=== PATIENT | female | born 1995 | race Caucasian/White ===

== ENCOUNTER 2019-02-20 09:01 | Emergency (ER) | payer SELFPAY | END 2019-02-20 12:10 | disposition home or self-care (01) | LOC: JER 09:01 ==

== ENCOUNTER 2019-09-24 10:44 | Emergency (ER) | payer OTHER ==
[2019-09-24 10:59] VITALS: BP 108/63; PULSE 68; TEMP 97.7; BMI 27.4
--- NOTE | 2019-09-24 11:19 | PDOC ---
History of Present Illness - General Chief Complaint: Cold Symptoms Stated Complaint: COLD SYMPTOMS Time Seen by Provider: 09/24/19 11:05 History Source: Patient Exam Limitations: No Limitations - History of Present Illness Initial Comments: 09/24/19 11:17 Patient is a 24-year-old female who presents to the ED with complaint of cough since August 2019. She states when she is outside in the cold she feels the cough is even worse. She does admit to some postnasal drip. She denies any other URI like symptoms. She denies any fevers. The patient does smoke marijuana but denies cigarette smoke. She denies any past medical history. Past History - Past Medical History Allergies/Adverse Reactions: Allergies Allergy/AdvReac Type Severity Reaction Status Date / Time No Known Allergies Allergy Verified 02/20/19 09:06 Home Medications: Ambulatory Orders Cephalexin [Keflex] 500 mg PO QID #40 capsule 02/20/19 Ibuprofen [Motrin -] 600 mg PO QID PRN #20 tablet 02/20/19 Benzonatate [Tessalon Pearls -] 100 mg PO TID PRN #21 capsule 09/24/19 Fluticasone Prop 0.05% Nasal [Flonase -] 2 spray NS DAILY #1 spray.pump COPD: No - Immunization History Immunization Up to Date: No - Psycho Social/Smoking Cessation Hx Smoking History: Unknown if ever smoked Have you smoked in the past 12 months: No Information on smoking cessation initiated: No Hx Alcohol Use: No Drug/Substance Use Hx: No Review of Systems - Review of Systems Comments:: 09/24/19 11:18 - Review of Systems Able to Perform ROS?: Yes Constitutional: No: Fever, Chills, Loss of Appetite, Night Sweats, Weakness HEENTM: No: Eye Pain, Vision changes, Ear Pain, Throat Pain, Throat Swelling, Mouth Pain, Difficulty Swallowing Respiratory: No: Shortness of Breath, Wheezing, Sputum Production; Positive cough Cardiac (ROS): No: Chest Pain, Chest Tightness, Palpitations, Irregular Heart Beat, Edema ABD/GI: No: Nausea, Vomiting, Abdominal Pain, Diarrhea Musculoskeletal: No: Muscle Pain, Back Pain, Joint Pain, Muscle Weakness, Neck Pain Integumentary: No: Lesions, Rash Neurological: No: Headache, Numbness, Tingling, Weakness, Speech Difficulties *Physical Exam - Vital Signs Last Vital Signs Temp Pulse Resp BP Pulse Ox 97.7 F 68 20 108/63 98 09/24/19 10:48 09/24/19 10:48 09/24/19 10:48 09/24/19 10:48 09/24/19 10:48 - Physical Exam 09/24/19 11:18 - Physical Exam General Appearance: Nourished, Appropriately Dressed, No Distress HEENT: EOMI, Normal Voice, No Pharyngeal Erythema, No Muffled/Hoarse voice, No Tonsillar Exudate, No Tonsillar Erythema, No Nasal Congestion, No Rhinorrhea, Hearing Grossly Normal, TMs Normal, No TM Bulging, No TM Dullness, No TM Erythema Neck: Supple, No Lymphadenopathy (R), No Lymphadenopathy (L), No Rigidity, No Decreased range of motion Respiratory/Chest: Lungs Clear, Normal Breath Sounds. No Respiratory Distress, No Accessory Muscle Use, no adventitious lung sounds appreciated. Cardiovascular: Regular Rhythm, Regular Rate, S1, S2 Gastrointestinal/Abdominal: Normal Bowel Sounds, Soft. Non-tender, No Guarding , No Rebound, No Rigidity Musculoskeletal: Normal Inspection. No Decreased Range of Motion Extremity: Normal Capillary Refill, Normal Inspection Integumentary: Normal Color, Dry. No Rash Neurologic: learning and development assistant II-XII NML intact, Fully Oriented, Alert, Normal Mood/Affect, Normal Response ED Treatment Course - RADIOLOGY Radiology Studies Ordered: Category Date Time Status CHEST PA & LAT [RAD] Stat Radiology 09/24/19 11:13 Ordered Medical Decision Making - Medical Decision Making 09/24/19 11:25 The patient's chest x-ray was read as no acute pathology by radiology. Her symptoms are likely secondary to a bronchitis and rhinitis. We will discharge the patient with Tessalon Perles and Flonase nasal spray. She should follow-up with her primary doctor within 1 to 2 days for repeat evaluation. She understands and agrees with this treatment and plan and she is stable for discharge. Discharge - Discharge Information Problems reviewed: Yes Clinical Impression/Diagnosis: Bronchitis Rhinitis Qualifiers: Rhinitis type: acute Qualified Code(s): J00 - Acute nasopharyngitis [common cold] Condition: Stable Disposition: HOME - Additional Discharge Information Prescriptions: Benzonatate [Tessalon Pearls -] 100 mg PO TID PRN #21 capsule PRN Reason: Cough Fluticasone Prop 0.05% Nasal [Flonase -] 2 spray NS DAILY #1 spray.pump - Follow up/Referral Referrals: Laura Stover COMMODITIES TRADER [Primary Care Provider] - - Patient Discharge Instructions Patient Printed Discharge Instructions: DI for Acute Bronchitis, DI for Allergic Rhinitis Additional Instructions: Take the Tessalon Perles as needed for cough. Use the nasal spray, 2 sprays in each nostril every morning, to help with the postnasal drip. Follow-up with your primary doctor within 1 to 2 days for repeat evaluation. - Post Discharge Activity Work/Back to School Note: Back to Work
== END 2019-09-24 11:36 | disposition home or self-care (01) ==
LOC: JERFT 10:44
DX: J40 Bronchitis, not specified as acute or chronic (principal); J00 Acute nasopharyngitis [common cold]
CPT/HCPCS: 71046-TC-FY; 99281-25

== ENCOUNTER 2019-11-08 17:34 | Emergency (ER) | payer OTHER ==
[2019-11-08 17:41] VITALS: BP 112/64; PULSE 77; TEMP 97.7; BMI 28.3
[2019-11-08] MEDS ORDERED: KETOROLAC TROMETHAMINE 30 MG/1 ML VIAL IM ONE (18:14)
[2019-11-08] MEDS ORDERED: KETOROLAC TROMETHAMINE 30 MG/1 ML VIAL ONE (18:16)
--- NOTE | 2019-11-08 19:05 | PDOC ---
History of Present Illness - General Chief Complaint: Pain Stated Complaint: LT WRIST PAIN Time Seen by Provider: 11/08/19 18:03 History Source: Patient Exam Limitations: No Limitations - History of Present Illness Initial Comments: 11/08/19 19:01 24-year-old female denies past medical history [id number] presents complaining of intermittent left wrist pain for 8 months. Denies injury, fever , chills, weakness, numbness and tingling. ROS: Left wrist pain PE: GENERAL: well-appearing, NAD HEAD: NCAT EYES: Pupils equal, round and reactive to light, sclera anicteric, conjunctiva clear ENT: pharynx: no erythema, no exudate, uvula midline NECK: supple CHEST: nontender RESP: clear, no w/r/r CARDIO: rrr, no m/g/r ABD: +BS, soft, nontender, non distended BACK: no midline spinal ttp, no CVAT EXTREMITIES: Normal range of motion, no edema, minimal swelling noted over the ulnar aspect of the left wrist, no tenderness to palpation, no erythema, positive radial pulse NEUROLOGICAL: Normal speech, normal gait SKIN: Warm, Dry Is this a multiple visit Asthma Patient?: No Past History - Past Medical History Allergies/Adverse Reactions: Allergies Allergy/AdvReac Type Severity Reaction Status Date / Time No Known Allergies Allergy Verified 11/08/19 17:39 Home Medications: Ambulatory Orders Cephalexin [Keflex] 500 mg PO QID #40 capsule 02/20/19 Ibuprofen [Motrin -] 600 mg PO QID PRN #20 tablet 02/20/19 Benzonatate [Tessalon Pearls -] 100 mg PO TID PRN #21 capsule 09/24/19 Fluticasone Prop 0.05% Nasal [Flonase -] 2 spray NS DAILY #1 spray.pump COPD: No - Immunization History Immunization Up to Date: No - Psycho Social/Smoking Cessation Hx Smoking History: Current every day smoker Have you smoked in the past 12 months: No Information on smoking cessation initiated: No Hx Alcohol Use: No Drug/Substance Use Hx: ([email or web address]) *Physical Exam - Vital Signs Last Vital Signs Temp Pulse Resp BP Pulse Ox 97.7 F 77 18 112/64 99 11/08/19 17:37 11/08/19 17:37 11/08/19 17:37 11/08/19 17:37 11/08/19 17:37 ED Treatment Course - ADDITIONAL ORDERS Additional order review: Laboratory Results 11/08/19 18:26 POC Glucometer 81 11/08/19 18:26 POC Glucometer 81 - Medications Given in the ED: ED Medications Discontinued Medications Generic Name Dose Route Start Last Admin Trade Name Darshan PRN Reason Stop Dose Admin Ketorolac Tromethamine 30 mg 11/08/19 18:14 11/08/19 18:15 Toradol Injection - IM 11/08/19 18:15 30 mg ONCE ONE Administration Medical Decision Making - Medical Decision Making 11/08/19 19:03 24-year-old female [id number] complaining of intermittent left wrist pain x8 months. Exam consistent with ganglion cyst Advised to alternate between acetaminophen and ibuprofen every 6 hours as needed for pain Advised to follow-up with orthopedics within 1 to 2 weeks Return precautions discussed Discharge - Discharge Information Problems reviewed: Yes Clinical Impression/Diagnosis: Ganglion cyst of dorsum of left wrist Condition: Stable Disposition: HOME - Admission No - Follow up/Referral Referrals: Jasmeet Santana DO [Staff Physician] - - Patient Discharge Instructions Additional Instructions: Alternate between acetaminophen and ibuprofen every 6 hours as needed for pain Follow-up with orthopedics within 1 week - Post Discharge Activity
== END 2019-11-08 19:06 | disposition home or self-care (01) ==
LOC: JERFT 17:34
PROC: 3E0233Z Introduction of Anti-inflammatory into Muscle, Percutaneous Approach (ICD-10-PCS; principal; 2019-11-08)
DX: M67.432 Ganglion, left wrist (principal)
CPT/HCPCS: 82962; 96372; 99284-25

== ENCOUNTER 2021-10-06 07:37 | Emergency (ER) | payer OTHER ==
[2021-10-06 07:46] VITALS: BP 137/75; PULSE 80; TEMP 97.7; BMI 30.7
[2021-10-06] MEDS ORDERED: DEXAMETHASONE LIQUID 0.5 MG/5 ML PO ONE (08:12)
[2021-10-06] MEDS ORDERED: guaiFENesin/D-METHORPHAN HB 10 ML UNIT-DOSE CUPS PO ONE (08:12)
[2021-10-06] MEDS ORDERED: ALBUTEROL SO4 2.5/IPRATROPIUM 0.5 INH SOL 3 ML VIAL.NEB. NEB SCH (08:15)
[2021-10-06] MEDS ORDERED: DEXAMETHASONE SOD PHOSPHATE 10 MG/1 ML VIAL ONE (08:43)
[2021-10-06] MEDS ORDERED: ALBUTEROL SO4 2.5/IPRATROPIUM 0.5 INH SOL 3 ML VIAL.NEB. NEB ONE (08:43)
[2021-10-06] MEDS ORDERED: guaiFENesin/D-METHORPHAN HB 10 ML UNIT-DOSE CUPS ONE (08:43)
== END 2021-10-06 09:22 | disposition home or self-care (01) ==
LOC: JER 07:37
PROC: 3E0F7GC Introduction of Other Therapeutic Substance into Respiratory Tract, Via Natural or Artificial Opening (ICD-10-PCS; principal; 2021-10-06)
DX: J20.9 Acute bronchitis, unspecified (principal)
CPT/HCPCS: 71046-TC-FY; 99284-25; C9803; U0003; U0005

== ENCOUNTER 2021-12-11 06:58 | Emergency (ER) | payer OTHER ==
[2021-12-11 07:31] VITALS: BP 122/61; PULSE 110; TEMP 98.1; BMI 30.9
[2021-12-11] MEDS ORDERED: ALBUTEROL SO4 2.5/IPRATROPIUM 0.5 INH SOL 3 ML VIAL.NEB. NEB ONE ×3 (07:58→08:26)
[2021-12-12 16:09] LABS: SARS-CoV-2 NAA Not Detected (Not Detected)
== END 2021-12-11 10:36 | disposition home or self-care (01) ==
LOC: JER 06:58
PROC: 3E0F7GC Introduction of Other Therapeutic Substance into Respiratory Tract, Via Natural or Artificial Opening (ICD-10-PCS; principal; 2021-12-11)
PROC: 3E0F7GC Introduction of Other Therapeutic Substance into Respiratory Tract, Via Natural or Artificial Opening (ICD-10-PCS; 2021-12-11)
DX: R06.2 Wheezing (principal); R05.1 Acute cough
CPT/HCPCS: 71046-TC-FY; 87804; 99281-25; C9803-CS; U0003; U0005

== ENCOUNTER 2022-03-01 21:43 | Emergency (ER) | payer OTHER ==
[2022-03-01 21:53] VITALS: BMI 32.1
[2022-03-01] MEDS ORDERED: predniSONE 20 MG TABLET (UD) PO ONE (22:15)
[2022-03-01] MEDS ORDERED: predniSONE 20 MG TABLET (UD) ONE (22:31)
[2022-03-01] MEDS ORDERED: ALBUTEROL SO4 2.5/IPRATROPIUM 0.5 INH SOL 3 ML VIAL.NEB. NEB ONE (22:31)
[2022-03-01] MEDS: ALBUTEROL SO4 2.5/IPRATROPIUM 0.5 INH SOL 3 ML VIAL.NEB. NEB SCH (22:32)
[2022-03-01] MEDS ORDERED: MAGNESIUM SULFATE IN WATER 2 GM/50 ML IVPB IVPB ONE (23:45)
[2022-03-02] MEDS ORDERED: ALBUTEROL SO4 0.083% IH SOL 2.5 MG/3 ML VIAL.NEB. NEB ONE (00:02)
[2022-03-02] MEDS ORDERED: MAGNESIUM SULFATE IN WATER 2 GM/50 ML IVPB IVPB ONE (00:02)
[2022-03-02] MEDS: ALBUTEROL SO4 0.083% IH SOL 2.5 MG/3 ML VIAL.NEB. NEB SCH ×2 (00:26→00:42)
[2022-03-02] MEDS ORDERED: ONDANSETRON 4 MG/2 ML VIAL IVPUSH ONE (00:29)
[2022-03-02] MEDS ORDERED: ONDANSETRON 4 MG/2 ML VIAL ONE (00:30)
[2022-03-02 00:44] LABS: BASO % 0.2 % (0-2.0); EOS % 0.6 % (0-4.5); HEMATOCRIT 45.4 % (32.4-45.2); HEMOGLOBIN 15.2 GM/dL (10.7-15.3); LYMPH % 9.1 % (8-40); MCH 28.9 pg (25.7-33.7); MCHC 33.6 g/dl (32.0-36.0); MEAN CELL VOLUME 86.1 fl (80-96); MEAN PLT VOLUME 9.7 fl (7.5-11.1); MONO % 7.9 % (3.8-10.2); NEUT % 82.2 % (42.8-82.8); PLATELET COUNT 326 10^3/uL (134-434); RBC 5.27 M/mm3 (3.60-5.2); RDW 14.3 % (11.6-15.6); WHITE BLOOD COUNT 18.4 K/mm3 (4.0-10.0)
[2022-03-02 00:47] LABS: EPI CELLS >36 /uL (0-25.1); HYALINE CASTS 1 /uL (0-3.1); URINE APPEARANCE CLOUDY; URINE BACTERIA 1274 /uL (0-1359); URINE BILIRUBIN NEGATIVE (NEGATIVE); URINE COLOR YELLOW; URINE GLUCOSE (UA) NEGATIVE (NEGATIVE); URINE KETONE 2+ (NEGATIVE); URINE LEUK ESTERASE NEGATIVE (NEGATIVE); URINE NITRITE NEGATIVE (NEGATIVE); URINE PROTEIN 1+ (NEGATIVE); URINE UROBILINOGEN 0.2 mg/dL (0.2-1.0); URINE WBC 15 /uL (0-25.8)
[2022-03-02 01:02] LABS: CALCIUM 9.7 mg/dL (8.5-10.1)
[2022-03-02 01:03] LABS: ALBUMIN 4.6 g/dl (3.4-5.0); MAGNESIUM 2.2 mg/dL (1.8-2.4)
[2022-03-02 01:07] LABS: CREATININE 0.9 mg/dL (0.55-1.3)
[2022-03-02 01:08] LABS: BILIRUBIN,TOTAL 0.4 mg/dL (0.2-1); TOT PROT 8.7 g/dl (6.4-8.2)
[2022-03-02 02:49] VITALS: BP 130/82; PULSE 101; TEMP 99.1
== END 2022-03-02 02:48 | disposition home or self-care (01) ==
LOC: JER 21:43
PROC: 3E033GC Introduction of Other Therapeutic Substance into Peripheral Vein, Percutaneous Approach (ICD-10-PCS; principal; 2022-03-01)
PROC: 3E0F7GC Introduction of Other Therapeutic Substance into Respiratory Tract, Via Natural or Artificial Opening (ICD-10-PCS; 2022-03-01)
DX: J45.901 Unspecified asthma with (acute) exacerbation (principal)
CPT/HCPCS: 0241U-QW; 36415; 71046-TC-FY; 80053; 81003; 83735; 84484; 84703; 85025; 87086; 93005; 93010; 99285-25

== ENCOUNTER 2022-09-03 20:50 | Emergency (ER) | payer OTHER ==
[2022-09-03 20:57] VITALS: BMI 32.4
[2022-09-03] MEDS ORDERED: ONDANSETRON 4 MG/2 ML VIAL IVPUSH ONE (21:36)
[2022-09-03] MEDS ORDERED: MAG HYDROX/AL HYDROX/SIMETH 30 ML UNIT-DOSE CUP PO ONE (21:36)
[2022-09-03] MEDS ORDERED: SODIUM CHLORIDE 1,000 ML IV STA (21:36)
[2022-09-03] MEDS ORDERED: FAMOTIDINE 20 MG/50 ML IVPB 20 MG/50 ML MG IVPB ONE (21:36)
[2022-09-03] MEDS ORDERED: ACETAMINOPHEN 1000 MG/100 ML BAG IVPB ONE (21:50)
[2022-09-03] MEDS ORDERED: ACETAMINOPHEN INJECTION 100 ML IVPB ONE (21:51)
[2022-09-03] MEDS ORDERED: ONDANSETRON 4 MG/2 ML VIAL ONE (21:51)
[2022-09-03] MEDS ORDERED: FAMOTIDINE 10 MG/ML VIAL IVPB ONE (21:52)
[2022-09-03 22:13] LABS: HEMATOCRIT 47.7 % (32.4-45.2); HEMOGLOBIN 15.6 GM/dL (10.7-15.3); MCH 28.6 pg (25.7-33.7); MCHC 32.8 g/dl (32.0-36.0); MEAN CELL VOLUME 87.3 fl (80-96); PLATELET COUNT 384 10^3/uL (134-434); RBC 5.46 M/mm3 (3.60-5.2); RDW 14.1 % (11.6-15.6); WHITE BLOOD COUNT 17.8 K/mm3 (4.0-10.0)
[2022-09-03 22:18] LABS: INR 1.07 (0.83-1.09); PROTHROMBIN TIME (PATIENT) 12.3 SEC (9.7-13.0)
[2022-09-03] MEDS ORDERED: HYDROmorphone HCL CARPU-JECT 2 MG/1 ML DISP.SYRIN IVPUSH ONE (22:18)
[2022-09-03] MEDS ORDERED: HYDROmorphone HCl 2 MG/ML VIAL ONE (22:21)
[2022-09-03 22:30] LABS: CHLORIDE 107 mmol/L (98-107); SODIUM 140 mmol/L (136-145)
[2022-09-03 22:33] LABS: ALBUMIN 4.4 g/dl (3.4-5.0); ANION GAP 12 MMOL/L (8-16); BLOOD UREA NITROGEN 13.4 mg/dL (7-18); CO2 21 mmol/L (21-32); GLUCOSE,RANDOM 115 mg/dL (74-106); LIPASE 91 U/L (73-393)
[2022-09-03 22:36] LABS: CREATININE 0.8 mg/dL (0.55-1.3); SGOT/AST 23 U/L (15-37); SGPT/ALT 35 U/L (13-61)
[2022-09-03 22:37] LABS: TOT PROT 8.2 g/dl (6.4-8.2)
[2022-09-03 22:38] LABS: BILIRUBIN,TOTAL 0.4 mg/dL (0.2-1)
[2022-09-03 22:39] LABS: ALK PHOS 200 U/L (45-117)
[2022-09-03 22:42] LABS: ANISOCYTOSIS 1+; MACROCYTOSIS 0
[2022-09-04 02:38] LABS: EPI CELLS 11 /uL (0-25.1); HYALINE CASTS 2 /uL (0-3.1); PH,URINE 5.5 (5.0-8.0); URINE APPEARANCE CLEAR; URINE BACTERIA 458 /uL (0-1359); URINE BILIRUBIN NEGATIVE (NEGATIVE); URINE COLOR YELLOW; URINE GLUCOSE (UA) NEGATIVE (NEGATIVE); URINE KETONE 1+ (NEGATIVE); URINE LEUK ESTERASE NEGATIVE (NEGATIVE); URINE NITRITE NEGATIVE (NEGATIVE); URINE PROTEIN 1+ (NEGATIVE); URINE UROBILINOGEN 0.2 mg/dL (0.2-1.0); URINE WBC 8 /uL (0-25.8)
[2022-09-04 02:40] VITALS: BP 100/51; PULSE 54; RESP 20; TEMP 97.8
== END 2022-09-04 03:08 | disposition home or self-care (01) ==
LOC: JER 20:50
PROC: 3E0333Z Introduction of Anti-inflammatory into Peripheral Vein, Percutaneous Approach (ICD-10-PCS; principal; 2022-09-03)
PROC: 3E033GC Introduction of Other Therapeutic Substance into Peripheral Vein, Percutaneous Approach (ICD-10-PCS; 2022-09-03)
PROC: 3E033NZ Introduction of Analgesics, Hypnotics, Sedatives into Peripheral Vein, Percutaneous Approach (ICD-10-PCS; 2022-09-03)
PROC: 3E033GC Introduction of Other Therapeutic Substance into Peripheral Vein, Percutaneous Approach (ICD-10-PCS; 2022-09-03)
PROC: 3E0337Z Introduction of Electrolytic and Water Balance Substance into Peripheral Vein, Percutaneous Approach (ICD-10-PCS; 2022-09-03)
DX: R10.84 Generalized abdominal pain (principal); R11.10 Vomiting, unspecified
CPT/HCPCS: 36415; 74177-TC; 76705-TC; 80053; 81003; 83690; 84702; 85025; 85610; 85730; 86850; 86900; 86901; 87086; 99285-25; Q9967

== ENCOUNTER 2022-12-23 16:57 | Emergency (ER) | payer OTHER ==
[2022-12-23 17:01] VITALS: BP 128/82; PULSE 84; RESP 18; TEMP 99; BMI 32.4
[2022-12-23] MEDS ORDERED: ALBUTEROL SO4 2.5/IPRATROPIUM 0.5 INH SOL 3 ML VIAL.NEB. NEB ONE ×3 (17:57→18:18)
[2022-12-23] MEDS ORDERED: predniSONE 20 MG TABLET (UD) PO ONE (17:57)
[2022-12-23] MEDS ORDERED: predniSONE 20 MG TABLET (UD) ONE (18:16)
== END 2022-12-23 18:55 | disposition home or self-care (01) ==
LOC: JERFT 16:57
PROC: 3E0F7GC Introduction of Other Therapeutic Substance into Respiratory Tract, Via Natural or Artificial Opening (ICD-10-PCS; principal; 2022-12-23)
DX: U07.1 COVID-19 (principal); J45.901 Unspecified asthma with (acute) exacerbation; R05.1 Acute cough; R06.02 Shortness of breath; R09.81 Nasal congestion
CPT/HCPCS: 0241U-QW; 71046-TC-FY; 99284-25